=== PATIENT | female | born 1950 | race Caucasian/White ===

== ENCOUNTER 2020-04-25 17:50 | Emergency (ER) | payer MEDICARE ==
[2020-04-25 18:17] LABS: URINE BILIRUBIN - DIPSTICK NEGATIVE (NEGATIVE); URINE BLOOD DIPSTICK LARGE (NEGATIVE); URINE COLOR RED; URINE GLUCOSE - DIPSTICK NEGATIVE (NEGATIVE); URINE KETONE TRACE mg/dL (NEGATIVE); URINE LEUK ESTERASE MODERATE (NEGATIVE); URINE NITRITE - DIPSTICK POSITIVE (Negative); URINE PH 6.5 (4.5-8.0); URINE PROTEIN - DIPSTICK >=300 mg/dL (NEG-TRACE); URINE SPECIFIC GRAVITY 1.015
[2020-04-25 18:18] LABS: URINE RBC TNTC RBC/hpf (0-5); URINE SQUAMOUS EPITHELIAL CELL FEW EPI/hpf (0-FEW); URINE WBC 20-50 WBC/hpf (0-5)
[2020-04-25] MEDS ORDERED: NITROFURANTN100 M2 PO (18:24)
[2020-04-25 18:30] VITALS: BP 135/75
== END 2020-04-25 18:30 | disposition home or self-care (01) ==
LOC: ED 17:50
PROVIDERS: Family Medicine
DX: N39.0 Urinary tract infection, site not specified (principal); I10 Essential (primary) hypertension; B96.1 Klebsiella pneumoniae [K. pneumoniae] as the cause of diseases classified elsewhere; Z87.440 Personal history of urinary (tract) infections

== ENCOUNTER 2020-06-02 07:14 | Emergency (ER) | payer MEDICARE ==
[~2020-06-02 07:14] MED LIST: NITROFURANTN100 M2 PO
[2020-06-02] MEDS ORDERED: FEMARA2.5 MG PO (07:49)
[2020-06-02] MEDS ORDERED: MAXZIDE-2537.5 MG/TA PO (07:49)
[2020-06-02] MEDS ORDERED: FLUOXETINE20 MG PO (07:50)
[2020-06-02] MEDS ORDERED: VITAMIN D35000 UNIT PO (07:52)
[2020-06-02] MEDS ORDERED: NP THYROID90 MG PO (07:53)
[2020-06-02] MEDS ORDERED: METFORMIN500 M2 PO (07:53)
[2020-06-02] MEDS ORDERED: ATENOLOL25 MG PO (07:54)
[2020-06-02] MEDS ORDERED: CRESTOR10 MG PO (07:55)
[2020-06-02] MEDS ORDERED: CRANBERRY PO (07:57)
[2020-06-02] MEDS ORDERED: ASPIRIN81 MG PO (07:57)
[2020-06-02] MEDS ORDERED: ACCOLATE10 MG PO (07:59)
[2020-06-02 08:10] LABS: URINE BILIRUBIN - DIPSTICK NEGATIVE (NEGATIVE); URINE BLOOD DIPSTICK LARGE (NEGATIVE); URINE COLOR YELLOW; URINE GLUCOSE - DIPSTICK NEGATIVE (NEGATIVE); URINE KETONE NEGATIVE (NEGATIVE); URINE PH 6.5 (4.5-8.0); URINE PROTEIN - DIPSTICK 30 mg/dL (NEG-TRACE); URINE SPECIFIC GRAVITY 1.015; URINE UROBILINOGEN - DIPSTICK 0.2 E.U./dL (0.2)
[2020-06-02 08:13] LABS: URINE BACTERIA MODERATE hpf; URINE LEUK ESTERASE MODERATE (NEGATIVE); URINE NITRITE - DIPSTICK POSITIVE (Negative); URINE SQUAMOUS EPITHELIAL CELL FEW EPI/hpf (0-FEW); URINE WBC 50-100 WBC/hpf (0-5)
[2020-06-02] MEDS ORDERED: OMNI-PAC300 MG PO (08:21)
[2020-06-02 08:50] VITALS: BP 139/79
== END 2020-06-02 08:50 | disposition home or self-care (01) ==
LOC: ED 07:14
PROVIDERS: Family Medicine
DX: N39.0 Urinary tract infection, site not specified (principal); E11.9 Type 2 diabetes mellitus without complications; I10 Essential (primary) hypertension; E03.9 Hypothyroidism, unspecified; E78.5 Hyperlipidemia, unspecified; B96.20 Unspecified Escherichia coli [E. coli] as the cause of diseases classified elsewhere; Z79.84 Long term (current) use of oral hypoglycemic drugs